=== PATIENT | male | born 1965 | race Caucasian/White ===

== ENCOUNTER 2016-10-15 08:26 | Day surgery (SDC) | payer BC ==
--- NOTE | 2016-10-15 10:05 | ERNOTE ---
GI Bleeding/Rectal Pain ER Date of Service: 10/15/16 Presenting Symptoms: hemorrhoids Time Seen by Provider: 10/15/16 09:29 Source: patient Exam Limitations: no limitations Immunizations: IMMUNIZATION HX History of Influenza Vaccine Yes Allergies/Adverse Reactions: Allergies bee pollen Allergy (Severe, Verified 10/15/16 08:35) Anaphylaxis Home Medications: HOME MEDICATIONS Ascorbic Acid [Vitamin C] 1,000 mg PO DAILY 07/13/15 [Last Taken Unknown] Atorvastatin Calcium [Lipitor] 20 mg PO HS 07/13/15 [Last Taken Unknown] EPINEPHrine [Epipen 2-Joni] 0.3 mg IM ONCE PRN 07/13/15 [Last Taken Unknown] Gabapentin [Neurontin] 300 mg PO BID 07/13/15 [Last Taken Unknown] Multivitamins [Multivitamin Davina] 1 cap PO DAILY 07/13/15 [Last Taken Unknown] Harshaw-3 Fatty Acids/Fish Oil [Fish Oil 1,000 mg Capsule] 1 each PO DAILY [Last Taken Unknown] Narrative: History of recurrent hemorrhoids. This episode began two days ago and has worsened. Now so painful the only comfortable position is standing, and he "can 't go through another day of this." Timing: getting worse Quality/Severity: Present: severe, aching, sharpness Nausea/Vomiting: Present: none Abdominal Pain: Present: none Rectal Bleeding: Present: bright red blood on paper Associated Symptoms: Denies: other Prior Treament: Reports: similar symptoms before. Denies: recently seen, currently on antibiotics Review of Systems - Review of Systems Constitutional: Present: no symptoms reported EYE: Present: no symptoms reported ENT: Present: no symptoms reported Respiratory: Present: no symptoms reported Cardiology: Present: no symptoms reported Gastrointestinal/Abdominal: Present: See HPI Genitourinary: Present: no symptoms reported Musculoskeletal: Present: no symptoms reported Skin: Present: no symptoms reported Neurological: Present: no symptoms reported Endocrine: Present: no symptoms reported Hematologic/Lymphatic: Present: no symptoms reported Psych: Present: no symptoms reported All Other Systems: All systems neg except as marked - Patient's Past Medical History Patient History - Medical: No pertinent hx Patient History - Cardiac/Respiratory: Hyperlipidemia Patient History - Cancer: No Hx of Cancer Patient History - Surgical Procedures: Other Patient History - Other: None - Social History Living Situations: home Abuse History: No History of abuse Psych History: No pertinent hx Alcohol Use: none Drug Use: none - Immunizations History of Influenza Vaccine: Yes Physical Exam - Physical Exam General Appearance: Present: wd/wn, alert, no apparent distress Eye Exam: Normal inspection: bilateral, PERRL: bilateral, EOMI: bilateral Ears, Nose, Throat: Present: normal ENT inspection Neck: Present: normal inspection Respiratory: Present: no respiratory distress Cardiovascular/Chest: Present: regular rate, rhythm Gastrointestinal/Abdominal: Present: normal bowel sounds, nontender, nondistended, soft, no organomegaly Rectal Exam: Present: hemorrhoids - 3 cm, exquisitely tender Back Exam: Present: normal inspection Extremity Exam: Present: normal inspection, no edema Neurological Exam: Present: alert, oriented, normal mood/affect Skin Exam: Present: normal color, warm/dry ED Progress - Vital Signs Patient's Vital Signs:: I have reviewed the patient's vital signs. Vital Signs: Vital Signs 10/15/16 08:30 Temperature 35.9 C L Pulse Rate 93 Respiratory 12 Rate Blood Pressure 143/104 O2 Sat by Pulse 99 Oximetry - Progress/Reassessment Chief Complaint: Rectal Bleeding Progress Note-Subjective: 10/15/16 10:05 I explained to the patient that his 3 cm hemorrhoid was too large for me to handle personally. I recommended surgery consult, the patient agreed, I called the oncall surgeon, Dr. Godfrey, who agreed to come see the patient. 10/15/16 13:06 Dr. Godfrey has seen the patient, and the plan is for surgical treatment today. Departure Clinical Impression: Thrombosed external hemorrhoid - Departure Disposition: [facility] Condition: Good
--- NOTE | 2016-10-15 12:57 | HP ---
Chief Complaint - Chief Complaint Date of Service: 10/15/16 Time of Service: 12:50 Chief Complaint: anal pain History of Present Illness: He started to have hemorrhoidal swelling last week, but last night became very painful. He has had I&D of thrombosed hemorrhoids twice before, lasst 6 yrs ago. Never this big or bad. Had normal colonoscopy in Jun 2015. He had solid food last night. He drank a bottled water this AM and sips of water in ER. - Patient's Past Medical History Patient History - Medical: No pertinent hx, Other - torn muscles left shoulder Patient History - Cardiac/Respiratory: Hyperlipidemia Patient History - Cancer: No Hx of Cancer Patient History - Surgical Procedures: Other Patient History - Other: None - Family History Family History:: no untoward family reactions to anesthesia, no familial bleeding tendencies - Social History Living Situations: home Abuse History: No History of abuse Psych History: No pertinent hx Alcohol Use: none Drug Use: none - Immunizations History of Influenza Vaccine: Yes Review Of Systems (GEN) - Review of Systems Generalized/Overall Review: Present: No Symptoms Reported. Absent: Chills, Fever EENTM: Present: No Symptoms Reported Respiratory: Present: No Symptoms Reported Cardiac: Present: No Symptoms Reported Abdominal: Present: Other - painful swelling on the left of the anus. Absent: Nausea, Vomiting, Abdominal Pain Musculoskeletal: Present: Other - improving muscle pain left shoulder Neurological: Present: No Symptoms Reported Skin: Present: No Symptoms Reported Immunizations: IMMUNIZATION HX History of Influenza Vaccine Yes Allergies/Adverse Reactions: Allergies Allergy/AdvReac Type Severity Reaction Status Date / Time bee pollen Allergy Severe Anaphylaxis Verified 10/15/16 08:35 Home Medications: HOME MEDICATIONS Ascorbic Acid [Vitamin C] 1,000 mg PO DAILY 07/13/15 [Last Taken Unknown] Atorvastatin Calcium [Lipitor] 20 mg PO HS 07/13/15 [Last Taken Unknown] EPINEPHrine [Epipen 2-Joni] 0.3 mg IM ONCE PRN 07/13/15 [Last Taken Unknown] Gabapentin [Neurontin] 300 mg PO BID 07/13/15 [Last Taken Unknown] Multivitamins [Multivitamin Davina] 1 cap PO DAILY 07/13/15 [Last Taken Unknown] Huddy-3 Fatty Acids/Fish Oil [Fish Oil 1,000 mg Capsule] 1 each PO DAILY [Last Taken Unknown] Exam - Exam Vital Signs: Vital Signs - Last Taken Temp 36.7 C 10/15/16 11:27 Pulse 83 10/15/16 11:27 Resp 18 10/15/16 11:27 BP 129/84 10/15/16 11:27 Pulse Ox 99 10/15/16 11:27 Constitutional: Present: Alert, Oriented x3, Cooperative, Well nourished, Mild distress ENT Exam: Present: normal ENT inspection Eye Exam: bilateral eye: normal inspection Neck: Present: full range of motion, normal inspection Back Exam: Present: normal inspection Respiratory: Present: lungs clear, normal breath sounds, no respiratory distress Cardiovascular/Chest: Present: normal peripheral pulses, regular rate, rhythm Abdomen: Present: soft, nontender /Rectal: Present: Other - 3 cm external hemorrhoid with thrombosis Extremity: Present: normal range of motion, normal inspection, no pedal edema, no calf tenderness Skin Exam: Present: normal color, warm/dry Neurologic: Present: paediatrician II-XII nml as tested, normal cerebellar test, no motor/ sensory deficits Appearance: Present: appropriate appearance, appropriate insight Eye contact: Present: cooperative, good eye contact, normal speech Thoughts: Present: normal thought pattern Assessment/Plan - Assessment/Plan (1) Thrombosed external hemorrhoid Assessment: This is too large to address without OR/anesthesia. Explained management to hism including risks and expected course. After an interactive discussion, his questions were answered to his apparent satisfaction and he has given informed consent for I&D/excision of thrombosed external hemorrhoid. Will need to wait for suitable period of NPO status as determined by Anesthesia. Problem: Acute
[2016-10-15] MEDS ORDERED: RINGERS SOLUTION,LACTATED 1,000 ML IV ONE (13:35)
[2016-10-15] MEDS ORDERED: ceFAZolin SODIUM 1 GM VIAL IV ONE (13:45)
[2016-10-15] MEDS ORDERED: BUPIVACAINE HCL/EPINEPHRINE 50 ML VIAL IJ ONE ×2 (13:50)
[2016-10-15] MEDS ORDERED: oxyCODONE HCL/ACETAMINOPHEN 1 TAB TABLET PO ONE (14:50)
[2016-10-15] MEDS ORDERED: RINGERS SOLUTION,LACTATED 1,000 ML IV PRN (14:50)
--- NOTE | 2016-10-15 14:50 | OR ---
Operative Report - Dictated Report Narrative: OPERATIVE REPORT DATE OF OPERATION: 10/15/16 PREOPERATIVE DIAGNOSIS: Thrombosed external hemorrhoid POSTOPERATIVE DIAGNOSIS: Thrombosed external hemorrhoid (3 cm) OPERATION: Incision and drainage of thrombosed external hemorrhoid in the left lateral position SURGEON: Linnette Godfrey MD ANESTHESIA: MAC/local Phong Delaney CRNA INDICATIONS FOR PROCEDURE: The patient is a 51-year-old male presented with a several day history of tender swelling to the left of the anus. He has had previous I&D of thrombosed external hemorrhoids on 2 occasions. The current thrombosed hemorrhoid is too large to address without sedation FINDINGS: Large thrombosed external hemorrhoid in the left lateral position NARRATIVE OF PROCEDURE: The patient was identified preoperatively and prior to the administration of anesthetic a multidisciplinary timeout was observed. 1 g of intravenous Ancef was administered. With the patient in the left lateral position and after the introduction of intravenous sedation, the anal area was prepped with Betadine solution and isolated with sterile drapes. Inspection revealed thrombosis of the left lateral hemorrhoidal group. The area was anesthetized with 0.5% Marcaine with epinephrine. An incision was made over the hemorrhoidal group and the clotted vein contents evacuated. Plan all clot had been evacuated from the group, the incision was approximated with interrupted sutures of 2-0 chromic. The operative procedure was terminated at this point. The patient tolerated the anesthetic and procedure well without complication. All counts were correct. No specimen was submitted. The patient was then transferred back to the floor for recovery awake and in stable condition. Reviewed and electronically signed
[2016-10-15 15:31] VITALS: BP 139/81
== END 2016-10-15 15:40 | disposition home or self-care (01) ==
LOC: ER 08:26 → AMB 10:04
PROVIDERS: ATTEND Surgery
PROC: 0D9P0ZZ Drainage of Rectum, Open Approach (ICD-10-PCS; principal; 2016-10-15 13:01)
DX: K64.5 Perianal venous thrombosis (principal); E78.5 Hyperlipidemia, unspecified; Z68.25 Body mass index [BMI] 25.0-25.9, adult